=== PATIENT | male | born 1995 | race Caucasian/White ===

== ENCOUNTER 2024-06-14 14:33 | Outpatient (CLI) | payer BC, SELFPAY ==
--- NOTE | ~2024-06-14 | US_ITS ---
TESTICULAR ULTRASOUND (Doppler ultrasound interrogation techniques used as needed for this exam.) Ordering provider: Florentino Brown APRN History: . N50.811 - Right testicular pain . Comparison: None. FINDINGS: TESTICLES: Normal in size. The right measures 3x 2.4x 3 cm and the left measures 4.7x 2.3x 3.1 cm. No rmal echogenicity bilaterally without mass lesion. Normal Doppler flow bilaterally. EPIDIDYMIDES: Normal in size. The right measures 1.3x 1.1x 1.5 cm and the left 1.8x 0.8 x 2.1 cm. Nor mal echogenicity bilaterally. Both demonstrate normal Doppler flow. HYDROCELE: None. VARICOCELE: None. OTHER ABNORMALITY: None seen. IMPRESSION: normal testicular ultrasound. Reviewed, dictated and finalized at location A. S OFFICER
== END 2024-06-14 14:34 | disposition home or self-care (01) ==
PROVIDERS: PCP Student in an Organized Health Care Education/Training Program; Visit Provider Student in an Organized Health Care Education/Training Program
DX: N50.811 Right testicular pain (principal)
CPT/HCPCS: 76870; 93976